=== PATIENT | female | born 1945 | race Caucasian/White ===

== ENCOUNTER 2024-06-01 09:31 | Outpatient (CLI) | payer MEDICARE, BC, SELFPAY | END 2024-06-01 09:32 | disposition home or self-care (01) | LOC: CT 09:33 | PROVIDERS: PCP Nurse Practitioner Family; Visit Provider Orthopaedic Surgery Sports Medicine | DX: M19.011 Primary osteoarthritis, right shoulder (principal); Z96.611 Presence of right artificial shoulder joint | CPT/HCPCS: 73200 ==

== ENCOUNTER 2024-06-21 13:40 | Outpatient (RCR) | payer MEDICARE, BC, SELFPAY ==
--- NOTE | 2024-06-21 15:02 | OT.OPOE ---
OT Outpatient Ortho Eval OT Outpatient Ortho Eval* Start: 06/21/24 13:42 Freq: Status: Active Protocol: Document 06/21/24 14:45 CSS (Rec: 06/21/24 15:02 CSS [id number]) E-signed By Tamica Sheppard OTR/L OT OP Ortho Eval Details Complexity Complexity Low Insurance Information Insurance Information Medicare B Outpatient History/Precautions Current Condition/Medical Diagnosis Referring Provider Dr. 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 Reports dtr plans to stay with her for approx 6 days to provide care. She plans on doing OP in [place] through [facility]. Pain Assessment Pain Pain Yes Pain Comments 4/10 R shoulder Range of Motion and Strength Shoulder Range of Motion and Strength Shoulder Range of Motion and Strength limited R shoulder AROM; less than 90 degrees of flexion Elbow/Forearm Range of Motion and Strength Elbow/Forearm Range of Motion and R elbow and forearm: WNL Strength OT Objective Data Sensation Sensation Assessment Summary Comments denies N/T OT Problems Problems Problems Decreased Strength,Decreased Range of Motion,Pain Other Problems Writing,Opening Containers, Dressing,Fasteners Patient Potential Excellent Assessment Assessment Assessment Pt is a 79 year old female who is referred to OP OT for pre- op shoulder education. Pt plans to have R shoulder arthoplasty by Dr. Dinero on 06/30/24. She will have daughter to provide care for her for 6 days post-op. Her son who lives with her is able to assist with IADLs, however he works outside of home so not able to provide around the clock supervision. In today's evaluation, pt educated on precautions, ADL retraining with non dominant hand, AE, fall prevention and post-op exercises. Pt would benefit from ongoing skilled OT during hospital after surgery and then OP PT for ongoing exercises; pt to be seen at [facility] in [place] for OP PT. Occupational Therapy Treatment Plan - OP Potential Rehabilitation Potential Excellent Set Goals Goals Set with Patient Yes Goals Goals 1. Patient will be able to properly don/doff her shoulder sling w/ mod independence while complying to shoulder precautions. - goal met 2. Patient will demonstrate how to accurately perform post-op HEP with use of handout w/ modified independence. - goal met 3. Patient will be able to verbalize post op shoulder precautions. - goal met. Treatment Plan Treatment Plan Evaluation,Therapeutic Exercise,Self Care/Home Management Expected Frequency 1x Week Expected Duration 1 day Home Program Home Program Home Program Initiated Home Program Specifics Supported Elbow (AROM) 1 set x10 repetitions; 3x/day Wrist Circles (AROM) 1 set x10 repetitions; 3x/day Seated Straight Fist (AROM) 1 set x10 repetitions; 3x/day Finger Spreading 1 set x10 repetitions; 3x/day Certification Certification Statement I Certify That: Therapy Services Provided, Therapy Plan Established, Therapy Plan Reviewed Certification Information Clinic ID # [id number] Initial Certification Date 06/21/24 Recertification Due Date 06/22/24 Provider Signature Required Yes Provider Signature Shows Agreement With POC & Medical Necessity Physician NPI Number Write NPI# Here Physician Comment/Change Comment or Changes Physician Signature & Date Requested Please Sign/Date Here
== END 2024-10-19 23:59 | disposition home or self-care (01) ==
PROVIDERS: PCP Nurse Practitioner Family; Visit Provider Orthopaedic Surgery Sports Medicine
DX: M19.011 Primary osteoarthritis, right shoulder (principal); Z96.611 Presence of right artificial shoulder joint; Z51.89 Encounter for other specified aftercare
CPT/HCPCS: 97110; 97165; 97535; J2795; X5282

== ENCOUNTER 2024-06-30 06:04 | Day surgery (SDC) | payer MEDICARE, BC, SELFPAY ==
[2024-06-30] VITALS (25 sets, daily range): BP systolic 89–157; BP diastolic 53–101; PULSE 61–79; RESP 16–20; TEMP 36.1–36.6; O2SAT 91–98; BMI 31.6
--- OUTSIDE RECORDS SUMMARY | 2024-06-30 06:09 | XMS_ITS | Clinical Summary ---
Author Organization [facility] Address [place], [place] [address] Care Team Providers Care Senior Sas Developer Name Role Phone Malika Loja NP Primary Care Provider [phone] Allergies No known active allergies Medications FISH OIL 1,000 MG CAP 2 Once daily 0 04/10/20 07 Active medication order composer Calcium plus D supplement 300 0 05/13/20 22 Active iron,carbonyl- vitamin C (Vitron-C) 65 mg iron- 125 mg Delayed-Releas e tablet Take 1 Tablet by mouth once daily. 07/15/19 24 Active amLODIPine-orlando azepril, 5-20 mg, (LOTREL) 5-20 mg capsuleIndicat ions:Hypertens ion, unspecified type Take 1 Capsule by mouth once daily. 90 Capsule 3 07/15/19 24 Active omeprazole (PRILOSEC) 40 mg Delayed-Releas e capsuleIndicat ions:Gastritis , presence of bleeding unspecified, unspecified chronicity, unspecified gastritis type Take 1 Capsule (40 mg) by mouth once daily. 90 Capsule 3 07/15/19 24 Active ciclopirox solution (LOPROX) 8 % solutionIndica tions:Fungal nail infection Apply topically to affected area(s) at bedtime. Apply solution once daily to affected nails with applicator brush, preferably at bedtime or 8 hours before washing; remove with alcohol every 7 days 6.6 mL 11 07/15/19 24 Active triamcinolone (ARISTOCORT; KENALOG) 0.1 % cream APPLY TO ITCHY AREAS ON THE TORSO ONE TO TWO TIMES DAILY FOR UP TO 2 WEEKS PER MONTH, THEN REPEAT NEEDED FOR FLARES 02/06/20 24 Active atenoloL (TENORMIN) 50 mg tabletIndicati ons:HTN (hypertension) Take 1 Tablet (50 mg) by mouth once daily. 90 Tablet 05/04/20 24 Active fluticasone (50 mcg per actuation) nasal solution (FLONASE)Indic ations:Allergi c rhinitis due to pollen, unspecified seasonality Inhale 1-2 Sprays in both nostrils once daily. 48 g 2 06/06/19 25 Active aspirin chewable 81 mg chewable tablet Take 1 tablet by mouth once daily with a meal. 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 GERD (gastroesophageal reflux disease) 8 OSTEOPENIA 08/28/2005 Overview (04/10/2007): DXA scan: lowest T-score -1.7 at femoral neck Unspecified essential hypertension Osteoarthrosis, unspecified whether generalized or localized, unspecified site Encounter for screening colonoscopy Encounters Date Type Department Care Team Description 06/18/2024 Orders Only [address] [address] Malika Loja NP 1 scan: (1-Ord) 06/17/2024 06/17/2024 10:30 AM ASSOCIATE TEAM PHYSICIAN Office Visit [address] [place] [address] Malika Loja NP Pre-Op Exam (06/30/24-RTSHOULDER REPLACEMENT) 06/17/2024 Travel 06/12/2024 Travel 06/03/2024 Refill [facility] [address] [facility] [place] [address] Malika Loja NP Refill Request (Fluticasone (50 Mcg Per Actuation) Nasal) 05/14/2024 Transcribe Orders [facility] [place] [id number] [address] [address] Tao Langley MD 04/26/2024 10:50 AM ASSOCIATE TEAM PHYSICIAN Office Visit [facility] [address] [place] [address] Malika Loja NP Blood Pressure 04/26/2024 Travel 04/23/2024 Telephone [facility] [address] [place] [address] Malika Loja NP Blood Pressure 04/21/2024 Travel 04/20/[address] [place] [address] Malika Loja NP Appointment 04/12/2024 Orders Only [facility] [address] [place] [address] Malika Loja NP <No scans attached> 04/08/2024 10:56 AM ASSOCIATE TEAM PHYSICIAN - 04/08/2024 11:59 PM ASSOCIATE TEAM PHYSICIAN Hospital Encounter [facility] [address] [facility] [place] [address] Malika Loja NP Mass of joint of right shoulder; Axillary mass, right 04/08/2024 10:10 AM ASSOCIATE TEAM PHYSICIAN Office Visit [facility] [address] [facility] [place] [address] Malika Loja NP Follow Up (Breast US) 04/07/2024 Travel from Last 3 Months Immunizations Name Administration Dates Next Due COVID-19 vaccine (Moderna 100mcg/0.5mL) EDUARDO SOLIS 09/22/2021,03/23/2021 DTaP 01/27/2008 Influenza, High-dose Inactivated 03/04/2016,1012/2014 Influenza, IIV3 (Age >=3 years) 03/03/20 14,03/10/2013,03/11/2012,03/20,03/09/2007,04/08/2005 Influenza, IIV4 03/04/2014 Influenza, Inactivated AIIV4 (Age 65+ Years) Preserv Free 03/10/2023,03/04/2022,03/03/2021,02/13 Influenza, Inactivated IIV3 (Age 65+ Years) Preserv Free 02/23/2024,02/05/2019,02/24/2018,01/20 Pneumococcal Poly,23-Valent (Pneumovax) 03/11/2012 Pneumococcal conj 13-Valent (Prevnar 13) 03/04/2014 RSV, Bivalent Vaccine Recons tituted (Abrysvo 120MCG/0.5mL) 02/05/2023 Td (Age >=7 Years) 03/01/2024 Tdap 12/28/2013 Zoster (Shingrix-RZV, recombinant) 09/25/2020, Zoster (Zostavax-ZVL, live) 01/27/2008 Family History Medical History Relation Name Comments Heart Disease Father Hypertension Mother Cancer No Family History Cancer-breast No Family History Cancer-colon No Family History Cancer-ovarian No Family History Cancer-prostate No Family History Relation Name Status Comments Father (Age 70) Mother Social History Tobacco Use Types Packs/Day Years Used Date Smoking Tobacco: Never Smokeless Tobacco: Never Tobacco Cessation:Counseling Given: Yes Alcohol Use Standard Drinks/Week Comments Yes 0.8 (1 standard drink = 0.6 oz p ure alcohol) rarely PHQ-2 Answer Date Recorded PHQ-2 TOTAL SCORE 0 07/15/2023 Social Connections Answer Date Recorded Do you often feel lonely or isolated from those around you? 0 02/25/2024 Alcohol Use Answer Date Recorded How often do you have a drink containing alcohol ? 3 05/11/2021 How many drinks containing a lcohol do you have on a typical day when you are drinking? 1 05/11/2021 How often do you have five or more drinks on one occasion? 1 05/11/2021 Financial Resource Strain Answer Date R ecorded Difficulty of Paying Living Expenses 3 02/25/2024 Difficulty of Paying Living Expenses Not on file 02/25/2024 Food Insecurity Answer Date Recorded Do you worry your food will run out before you are able to buy more? 1 02/25/2024 Transportation Needs Answer Date Record ed Does lack of transportation keep you from medica l appointments? 1 02/25/2024 Does lack of transportation keep you from work, meetings or getting things that you need? 1 02/25/2024 Housing Stability Answer Date Recorded What is your housing situation today? 1 02/25/2024 Utilities Answer Date Recorded Do you have trouble paying f or utilities (for example, heat, electricity, water, phone)? 1 02/25/2024 Comments No Sex and Gender Information Value Date Recorded Sex Assigned at Not on file Legal Sex Female 6:05 AM ASSOCIATE TEAM PHYSICIAN Gender Identity Not on file Sexual Orientation Not on file Occupation Industry Job Start Date Job End Date Not on file Not on file Not on file Not on file Obstetrics History Para Term AB IAB SAB Ectopic Multiple Livin g Live Births 3 3 3 Date Outcome GA Total Labor Labor/2nd/3rd Weight Sex Type Anes PTL Kimmy A1 A5 Name Clin Para Para Para Last Filed Vital Signs Vital Sign Reading Time Taken Comments Blood Pressure 138/94 06/17/2024 10:43 AM ASSOCIATE TEAM PHYSICIAN Pulse 64 06/17/2024 10:43 AM ASSOCIATE TEAM PHYSICIAN Temperature 36.5 C (97.7 F) 10/21/2023 12:05 PM CDT Respiratory Rate 16 10/21/2023 12:05 PM CDT Oxygen Saturation 96% 10/21/2023 12:05 PM CDT Inhaled Oxygen Concentration - - Weight 68.7 kg (151 lb 8 oz) 06/17/2024 10:43 AM ASSOCIATE TEAM PHYSICIAN Height 146.1 cm (4' 9.5) 07/15/2023 8:28 AM ASSOCIATE TEAM PHYSICIAN Body Mass Index 32.22 07/15/2023 8:28 AM ASSOCIATE TEAM PHYSICIAN Plan of Treatment Upcoming Encounters Date Type Department Care Team (Late st Contact Info) Description 07/14/2024 10:15 AM ASSOCIATE TEAM PHYSICIAN Appointment [facility] [address] [address] Ines Ruiz, PT [address] [place] [address] 07/21/2024 10:15 AM ASSOCIATE TEAM PHYSICIAN Appointment [address] [address] MaryInes brandt, PT [address] [place] [address] 07/28/2024 10:15 AM ASSOCIATE TEAM PHYSICIAN Appointment [address] [address] Ines Ruiz, PT [address] [place] [address] Health Maintenance Due Date Last Done Comments BMI (ht and wt on same day) for age 18+ 07/15/2024 07/15/2023, 07/23/2022, 05/13/2022, Additional history exists Depression screening for age 12+ 07/15/2024 07/15/2023, 05/14/2022, 05/13/2022, Additional history exists Medicare Wellness for age 65+ 07/15/2024, 05/13/2022, 05/11/2021, Additional history exists Tetanus booster 03/01/2034 03/01/2024, 0809/2013, 01/27/2008 DEXA/DXA scan for age 65+ Completed 03/23/2012, 08/2007 Tdap Completed 12/28/2013 Pneumococcal series for age 50+ Completed 4, 03/11/2012 Zoster (shingles) series for age 50+ Completed 09/25/2020, 05/01/2020, 01/27/2008 RSV vaccine for adults or Completed 02/05/2023 COVID-19 vaccine series Completed 02/23/20 24, 03/10/2023, 02/25/2022, Additional history exists Influenza for age 65+ Completed 02/23/2024 , 03/10/2023, 03/04/2022, Additional history exists Procedures Procedure Name Priority Date/Time Associated Diagnosis Comments CBC WITH AUTO DIFFERENTIAL STAT 06/17/2024 11:25 AM ASSOCIATE TEAM PHYSICIAN Pre-op exam Nontraumatic complete tear of right rotator cuff BASIC METABOLIC PANEL STAT 06/17/2024 11:25 AM ASSOCIATE TEAM PHYSICIAN Pre-op exam Nontraumatic complete tear of right rotator cuff CBC WITH AUTO DIFFERENTIAL STAT 06/17/2024 11:25 AM ASSOCIATE TEAM PHYSICIAN Pre-op exam Nontraumatic complete tear of right rotator cuff EKG 12 LEAD Routine 06/17/2024 12:00 AM ASSOCIATE TEAM PHYSICIAN Pre-op exam Nontraumatic complete tear of right rotator cuff MR SHOULDER RIGHT WO AVANI 04/08/2024 12:38 PM ASSOCIATE TEAM PHYSICIAN Mass of joint of right shoulder Axillary mass, right XR DXA BONE DENSITY 2 SITES AXIAL Routine 03/23/2012 9:54 AM CDT OSTEOPENIA from Last 3 Months or Most Recently Relevant to Health Maintenance Results * (ABNORMAL) CBC WITH AUTO DIFFERENTIAL (06/17/2024 11:25 AM ASSOCIATE TEAM PHYSICIAN) WHITE BLOOD COUNT 6.9 4.5 - 11.0 thou/cu mm 06/17/2024 11:55 AM [facility] RED BLOOD COUNT 4.73 4.00 - 5.20 mil/cu mm 06/17/2024 11:55 AM [facility] HEMOGLOBIN 13.4 12.0 - 16.0 g/dL 06/17/2024 11:55 AM [facility] HEMATOCRIT 41.3 33.0 - 51.0 % 06/17/2024 11:55 AM [facility] MCV 87 80 - 100 fL 06/17/2024 11:55 AM [facility] MCH 28.3 26.0 - 34.0 pg 06/17/2024 11:55 AM [facility] MCHC 32.4 32.0 - 36.0 g/dL 06/17/2024 11:55 AM [facility] RDW 14.7 11.5 - 15.5 % 06/17/2024 11:55 AM [facility] PLATELET COUNT 355 140 - 440 thou/cu mm 06/17/2024 11:55 AM [facility] MPV 9.2 6.5 - 11.0 fL 06/17/2024 11:55 AM [facility] % NEUT 67.1 % 06/17/2024 11:55 AM [facility] % LYMPH 17.8 % 06/17/2024 11:55 AM [facility] % MONO 13.1 % 06/17/2024 11:55 AM [facility] % EOS 1.7 % 06/17/2024 11:55 AM [facility] % BASO 0.3 % 06/17/2024 11:55 AM [facility] ABSOLUTE NEUTROPHILS 4.6 1.7 - 7.0 thou/cu mm 06/17/2024 11:55 AM [facility] ABSOLUTE LYMPHOCYTES 1.2 0.9 - 2.9 thou/cu mm 06/17/2024 11:55 AM [facility] ABSOLUTE MONOCYTES 0.9(H) <0.9 thou/cu mm 06/17/2024 11:55 AM [facility] ABSOLUTE EOSINOPHILS 0.1 <0.5 thou/cu mm 06/17/2024 11:55 AM [facility] ABSOLUTE BASOPHILS 0.0 <0.3 thou/cu mm 06/17/2024 11:55 AM [facility] Blood BLOOD SPECIMEN / Unknown [facility] / Unknown 06/17/2024 11:25 AM [facility] 06/17/2024 11:25 AM [facility] Malika Loja NP HEMATOLOGY Final Result [facility] [address] [place] [address] * (ABNORMAL) BASIC METABOLIC PANEL (06/17/2024 11:25 AM [facility]) SODIUM 130(L) 136 - 145 mmol/L 06/17/2024 12:08 PM [facility] POTASSIUM 4.2 3.5 - 5.1 mmol/L 06/17/2024 12:08 PM [facility] CHLORIDE 92(L) 98 - 107 mmol/L 06/17/2024 12:08 PM [facility] CO2,TOTAL 27 22 - 29 mmol/L 06/17/2024 12:08 PM [facility] ANION GAP 11 5 - 18 06/17/2024 12:08 PM [facility] GLUCOSE 103(H) 70 - 99 mg/dL 06/17/2024 12:08 PM [facility] CALCIUM 9.9 8.8 - 10.4 mg/dL 06/17/2024 12:08 PM [facility] Comment: Reference ranges for this test were updated on 03/30/2024 to reflect our healthy population more accurately. Reference range changes are not retroactively applied to results, but previous results using the same methodology can be interpreted in the context of the new reference range. BUN 6(L) 8 - 23 mg/dL 06/17/2024 12:08 PM [facility] CREATININE 0.65 0.50 - 0.90 mg/dL 06/17/2024 12:08 PM [facility] BUN/CREAT RATIO 9(L) 10 - 20 12:08 PM [facility] eGFR 89(L) >90 mL/min/1. 73m2 06/17/2024 12:08 PM [facility] Comment:As of 2021, eG FR is calculated by the CKD-EPI creatinine equation without race adjustment. eGFR can be influenced by muscle mass, exercise, and diet. The reported eGFR is an estimation only and is only applicable if the renal function is stable. Blood BLOOD SPECIMEN / Unknown [facility] / Unknown 06/17/2024 11:25 AM ASSOCIATE TEAM PHYSICIAN 06/17/2024 11:25 AM [facility] us Malika Arendt INDUSTRIAL TRAINING SPECIALIST CHEMISTRY Final Result [facility] [address] [place] [address] * EKG 12 LEAD (06/17/2024 12:00 AM ASSOCIATE TEAM PHYSICIAN) Malika Loja INDUSTRIAL TRAINING SPECIALIST EKG ORD Final Result * MR SHOULDER RIGHT WO (04/08/2024 12:38 PM ASSOCIATE TEAM PHYSICIAN) Anatomical Region Laterality Modality SHOULDER R Magnetic Resonan ce 04/08/2024 1:02 PM ASSOCIATE TEAM PHYSICIAN Impressions 04/08/2024 1:02 PM ASSOCIATE TEAM PHYSICIAN 1. Massive rotator cuff tear with muscular atrophy. Full-thickness tear of the long head of the biceps tendon. Superior and anterior subluxation of the humeral head. 2. Advanced glenohumeral osteoarthritis with osseous remodeling of the glenoid and humeral head. 3. Prominent glenohumeral joint effusion and distention of the subacromial subdeltoid bursa with fluid and synovitis. 4. Tear and degeneration of the labrum. 5. Remodeling and narrowing of the coracoacromial arch secondary to the humeral subluxation. Dictated by Chad Martinez MD @ 04/08/2024 1:02:44 PM (Electronically Signed) Narrative 04/08/2024 1:02 PM ASSOCIATE TEAM PHYSICIAN For Patients: As a result of the Century Cures Act, medical imaging exams and procedure reports are released immediately into your electronic medical record. You may view this report before your referring provider. If you have questions, please contact your health care provider. EXAM: MRI OF THE RIGHT SHOULDER WITHOUT CONTRAST CLINICAL INDICATION: Follow-up shoulder dysfunction axillary fullness. COMPARISON PLAIN FILMS: None available at time of interpretation. COMPARISON CROSS-SECTIONAL IMAGING STUDIES: 03/08/2024 ultrasound. TECHNICAL: Axial, sagittal oblique and coronal oblique T1, PD, PD FS and T2-weighted images. Shoulder surface coil. FINDINGS: ROTATOR CUFF TENDONS AND MUSCLES AND DELTOID: Supraspinatus: Full-thickness tear with medial retraction to the superior glenoid. Prominent atrophy. No muscle edema. Infraspinatus: Full-thickness tear of the majority of the infraspinatus tendon with a few posterior fibers which remain intact. Prominent atrophy. No muscle edema. Subscapularis: Full-thickness tear of the mid to superior subscapularis tendon with medial retraction and prominent atrophy of the superior musculature. Teres Minor: No tendinosis, tendon tearing, muscle atrophy or muscle edema. Deltoid: No muscle atrophy or edema. BURSA: Subacromial-subdeltoid: Prominent distention of the subacromial subdeltoid bursa with synovitis. BICEPS TENDON, LONG HEAD: Full-thickness tear and proximal retraction. CORACOACROMIAL ARCH: Acromial Morphology: Type 1 acromial morphology. Superior and anterior subluxation of the humeral head with osseous remodeling and fragmentation of the acromion, distal clavicle and coracoid. Acromiohumeral Interval: Narrowed interval secondary to superior subluxation of the humeral head. Coracohumeral Interval: Narrowed interval secondary to humeral head subluxation. ACROMIOCLAVICULAR JOINT REGION: AC Joint: Remodeling and widening of the acromioclavicular joint. No inferior marginal osteophytes. Ligaments: The coracoclavicular ligaments are intact. GLENOHUMERAL JOINT: Joint space: Prominent glenohumeral joint effusion with mild synovitis contiguous with the subacromial subdeltoid bursa. Humeral Head Articular Cartilage: Full-thickness chondromalacia with mild osseous remodeling superiorly. Glenoid Articular Cartilage: Prominent osseous remodeling of the superior and anterior glenoid. Labrum: Diffuse tear and degeneration. Alignment: Superior and anterior subluxation of the humeral head. Capsule: No capsular edema or abnormal capsular thickening. OSSEOUS STRUCTURES: No fracture, marrow edema or marrow replacement process. OTHER FINDINGS: The glenohumeral joint effusion and prominent amount of fluid in the subacromial subdeltoid bursa account for the axillary fullness. Procedure Note Chad Martinez MD - 04/08/2024 For Patients: As a result of the 21st Century Cures Act, medical imagingexams and procedure reports are released immediately into your electronicmedical record. You may view this report before your referring provider.If you have questions, please contact your health care provider. EXAM: MRI OF THE RIGHT SHOULDER WITHOUT CONTRAST CLINICAL INDICATION: Follow-up shoulder dysfunction axillary fullness. COMPARISON PLAIN FILMS: None available at time of interpretation. COMPARISON CROSS-SECTIONAL IMAGING STUDIES: 03/08/2024 ultrasound. TECHNICAL: Axial, sagittal oblique and coronal oblique T1, PD, PD FS and T2-weightedimages. Shoulder surface coil. FINDINGS: ROTATOR CUFF TENDONS AND MUSCLES AND DELTOID: Supraspinatus: Full-thickness tear with medial retraction to the superiorglenoid. Prominent atrophy. No muscle edema. Infraspinatus: Full-thickness tear of the majority of the infraspinatustendon with a few posterior fibers which remain intact. Prominent atrophy.No muscle edema. Subscapularis: Full-thickness tear of the mid to superior subscapularistendon with medial retraction and prominent atrophy of the superiormusculature. Teres Minor: No tendinosis, tendon tearing, muscle atrophy or muscleedema. Deltoid: No muscle atrophy or edema. BURSA: Subacromial-subdeltoid: Prominent distention of the subacromial subdeltoidbursa with synovitis. BICEPS TENDON, LONG HEAD: Full-thickness tear and proximal retraction. CORACOACROMIAL ARCH: Acromial Morphology: Type 1 acromial morphology. Superior and anteriorsubluxation of the humeral head with osseous remodeling and fragmentationof the acromion, distal clavicle and coracoid. Acromiohumeral Interval: Narrowed interval secondary to superiorsubluxation of the humeral head. Coracohumeral Interval: Narrowed interval secondary to humeral headsubluxation. ACROMIOCLAVICULAR JOINT REGION: AC Joint: Remodeling and widening of the acromioclavicular joint. Noinferior marginal osteophytes. Ligaments: The coracoclavicular ligaments are intact. GLENOHUMERAL JOINT: Joint space: Prominent glenohumeral joint effusion with mild synovitiscontiguous with the subacromial subdeltoid bursa. Humeral Head Articular Cartilage: Full-thickness chondromalacia with mildosseous remodeling superiorly. Glenoid Articular Cartilage: Prominent osseous remodeling of the superiorand anterior glenoid. Labrum: Diffuse tear and degeneration. Alignment: Superior and anterior subluxation of the humeral head. Capsule: No capsular edema or abnormal capsular thickening. OSSEOUS STRUCTURES: No fracture, marrow edema or marrow replacement process. OTHER FINDINGS: The glenohumeral joint effusion and prominent amount of fluid in thesubacromial subdeltoid bursa account for the axillary fullness. IMPRESSION: 1. Massive rotator cuff tear with muscular atrophy. Full-thickness tear ofthe long head of the biceps tendon. Superior and anterior subluxation ofthe humeral head. 2. Advanced glenohumeral osteoarthritis with osseous remodeling of theglenoid and humeral head. 3. Prominent glenohumeral joint effusion and distention of the subacromialsubdeltoid bursa with fluid and synovitis. 4. Tear and degeneration of the labrum. 5. Remodeling and narrowing of the coracoacromial arch secondary to thehumeral subluxation. Dictated by Chad Martinez MD @ 04/08/2024 1:02:44 PM (Electronically Signed) Malika Loja NP MR Final Result * (ABNORMAL) XR DEXA BONE DENSITY 2 SITES (03/23/2012 9:54 AM CDT) Anatomical Region Laterality Modality Spine, HIPS, HIPL, HIPR Bone Den sitometry Narrative 03/30/2012 10:16 AM ASSOCIATE TEAM PHYSICIAN Please see scanned document for results of this study. Procedure Note Cami Caro MD - 03/30/2012 Please see scanned document for results of this study. Malika Loja NP DEXA Final Result from Last 3 Months or Most Recently Relevant to Health Maintenance Insurance MEDICARE PART B HB ONLY MEDICARE PART A HB ONLY [place] BLUE MR PB ONLY MEDICARE PART A HB ONLY MEDICARE PART B HB ONLY MR [place] Advance Directives * Full Code (Latest Code Status on File) Date Activated Date Inactivated Comments 04/06/2019 9:55 AM 04/06/2019 4:11 PM Question Answer Comments Code Status Discussion: Discussed * Full Code Date Activated Date Inactivated Comments 04/26/2014 11:38 AM 04/26/2014 2:35 PM * Full Code Date Activated Date Inactivated Comments 04/25/2014 6:22 PM 04/26/2014 11:38 AM * Full Code Date Activated Date Inactivated Comments 04/18/2014 6:43 PM 04/25/2014 6:22 PM Care Teams Senior Sas Developer Relationship Specialty Start Date End Date Malika Loja NP [address] [place] [id number] PCP - General Family Practice 11/30/13
[2024-06-30] MEDS: OXYCODONE (CR) 10 MG TAB.ER.12H PO (06:30)
[2024-06-30] MEDS: SODIUM CHLORIDE 0.9 % (FLUSH) 10 ML SYRINGE IVF (06:30)
[2024-06-30] MEDS: LACTATED RINGERS 1000 ML 1,000 ML 100 ML IV ×2 (06:30→09:37)
[2024-06-30] MEDS: ACETAMINOPHEN 500 MG TABLET 1000 MG PO (06:31)
[2024-06-30] MEDS: MIDAZOLAM HCL 1 MG/ML inj IVP (07:01)
[2024-06-30] MEDS: fentaNYL 100 MCG/2 ML inj IVP (07:01)
--- NOTE | 2024-06-30 07:04 | W.PM.H&PU ---
History & Physical Update History & Physical Update H&P Reviewed and patient assessed: No changes noted
--- NOTE | 2024-06-30 07:08 | SUR.PREOP ---
TIME?OUT:?01 PT/RN/MDA?VERIFICATION?OF?SURGICAL?SITE,?PROCEDURE,?AND?CONSENT OBTAINED?PRIOR?TO?INVASIVE?PROCEDURE.
--- NOTE | 2024-06-30 07:29 | W.ANESCHARGE ---
Anesthesia Charges Start Date/Time Anesthesia Start Date: 06/30/24 Anesthesia Start Time: 07:13 Stop Date/Time Anesthesia Stop Date: 06/30/24 Anesthesia Stop Time: 09:36 Summary Extremes of Age - Over 70 or under 1: MDA Coding CPT Codes CPT Codes: ANESTH SHOULDER REPLACEMENT - 60223 ([id number]) P2 - PATIENT W/MILD SYST DISEASE, QK - MAINTENANCE ENGINEER 2-4 CNCRNT ANES PROC, QX - HEALTHCARE ANALYST SVC W/ MD MED DIRECTION Additional Codes: Summary - Extremes of Age - Over 70 or under 1: MDA ([id number])
--- NOTE | 2024-06-30 07:29 | P.ANES_ITS ---
Anesthesia Charges Start Date/Time Anesthesia Start Date: 06/30/24 Anesthesia Start Time: 07:13 Stop Date/Time Anesthesia Stop Date: 06/30/24 Anesthesia Stop Time: 09:36 Summary Extremes of Age - Over 70 or under 1: MDA Coding CPT Codes CPT Codes: ANESTH SHOULDER REPLACEMENT - 53822 ([id number]) P2 - PATIENT W/MILD SYST DISEASE, QK - DRILL PRESS SET UP OPERATOR 2-4 CNCRNT ANES PROC, QX - SENIOR CLINICAL CONSULTANT SVC W/ MD MED DIRECTION Additional Codes: Summary - Extremes of Age - Over 70 or under 1: MDA ([id number])
[2024-06-30] MEDS: CEFAZOLIN 2 GM in 0.9 % SODIUM CHLORIDE Mini-bag 100 ML IVPB (07:35)
[2024-06-30] MEDS: TRANEXAMIC ACID 100 MG/ML INJ 1000 MG IV (07:35)
--- NOTE | 2024-06-30 09:15 | P.NB_ITS ---
Nerve Block Nerve Block Time Seen by Provider: 07:05 Date Seen: 06/30/24 Type of block requested by surgeon for post-operative analgesia: supraclavicular Side: right Time out performed: Yes Verification of patient name: Yes Verification of date of : Yes Site marking: site marked Name of person performing procedure: Kvng Continuous monitoring Was continuous monitoring of O2 sat, B/P, phototypesetting equipment monitor, recorded every 15 minutes?: Yes Procedure Checklist: sterile prep, needles and gloves Ultrasound guided. Images saved: Yes Medications given in 5ml increments after negative aspiration: Ropivicaine %: 0.5 mL: 20 Needle gauge: 22 Precedex (mcg): 25 Patient tolerated procedure well: Yes Block Charges Block Charge (with Pro Fee): Brachial Plexus Use of Ultrasound Machine for Block: Yes- US Guidance/pain block
--- NOTE | 2024-06-30 09:15 | CRLHL7_ITS ---
For Patients: As a result of the Century Cures Act, medical imaging exams and procedure reports are released immediately into your electronic medical record. You may view this report before your referring provider. If you have questions, please contact your health care provider. INDICATION: Postop. TECHNIQUE: Two views of the right shoulder. FINDINGS: New reverse right TSA. Components appear well seated. Resection of the distal clavicle. Dictated by Alberto Ivan MD @ 06/30/2024 1:24:51 PM (Electronically Signed)
--- NOTE | 2024-06-30 09:23 | P.ORPRC_ITS ---
Procedure Note Date of procedure: 06/30/24 Procedure: PREOPERATIVE DIAGNOSIS: 1. Right shoulder cuff tear arthropathy, severe POSTOPERATIVE DIAGNOSIS: 1. Right shoulder cuff tear arthropathy, severe PROCEDURE: 1. Right reverse shoulder arthroplasty SURGEON: Tao Langley MD. SOCIAL GROUP WORKER: [facility] - Of note, a skilled medical technician assistant was critical for this case to aid in patient positioning, tissue retraction, limb manipulation/positioning, retraction for glenoid exposure, which was challenging, awareness and protection of critical structures, and closure. ANESTHESIA: General plus supraclavicular block EBL: 100 ml IMPLANTS: DJ0 surgical Altivate humeral stem size 10 small shell, short with P2 porous coating vitamin E semi constrained poly small socket insert RSP glenoid augmented wedged base plate P2 porous coating with 30 mm central screw for modular component and Winston taper piece engagement in the base plate. 3 perimeter locking screws 32- 4 glenosphere with retaining screw COMPLICATIONS: None evident INDICATIONS: The patient is a pleasant 79-year-old female who has experienced severe right shoulder pain and difficulty with use. Workup included imaging which revealed severe osteoarthrosis along with clear cuff tear arthropathy due to superior humeral head migration and severe medialization of the humeral head. Physical exam was consistent with associated pain. Given the deformity, the dysfunction, and the pain, and failure of nonoperative management, recommendation was made for surgery. DESCRIPTION OF PROCEDURE: Following a thorough discussion of risks, benefits, and alternatives, consent was obtained and the left shoulder was marked. The patient was brought to the operating room and placed supine on the operating table. Induction of anesthesia was undertaken. 1 g IV Ancef and 1 g tranexamic acid was administered within 1 hr of incision preoperatively. Appropriate time-out was performed identifying proper patient, site, and procedure. The operative extremity was prepped and draped in the appropriate sterile fashion using ChloraPrep after the patient was positioned in the lazy beach chair position with head in neutral alignment and all bony prominences well padded. A longitudinal incision was made for deltopectoral approach. Deltoid was retracted laterally. Cephalic vein was identified and retracted laterally as well. Vein was spared/protected throughout the case. The clavipectoral fascia was identified and divided longitudinally staying lateral to the conjoined tendon / coracoid. The conjoined tendon was protected with a blunt Hohmann. The long head of biceps tendon was not visualized during the surgery as it likely had previously spontaneously ruptured and retracted distally. The upper 1/4 of the pectoralis major was also released from its insertion. The rotator cuff was inspected and found to have fair-poor integrity with the subscapularis but poor integrity with a supraspinatus], and a decision for a reverse shoulder arthroplasty was confirmed. A subscapularis cuff of tissue /anterior capsular tissue was left via tenotomy for later repair with the remaining subscapularis released in a subperiosteal fashion with the Bovie. This tenotomy was tagged for later repair. The 3 sisters were cauterized. The upper subscapularis was released from the capsule with a curved Victoria scissors towards the glenoid. The inferior subscapularis was divided from the capsular tissue on its caudal surface with particular caution for the axillary nerve. This was palpated anterior to the subscapularis both prior to and near the finish of the case. Inferior humeral head osteophytes were excised with caution taken throughout the case with regards to the axillary nerve. The humerus was dislocated, and humeral head cut completed. Then a protector plate was applied. We turned our attention to the glenoid. The humerus was retracted posteriorly. The subscap was protected anteriorly and the labrum/long head biceps origin was excised circumferentially. The capsule was released along the anterior and inferior portions of the glenoid cautiously with a Sena elevator being careful not to penetrate deep. The glenoid had appropriate exposure, and was prepared with the cannulated system with a target of approximately 0-5? of inferior tilt and neutral anteversion. The patient had a significant medialization of the humeral head and superior wear of the glenoid with excessive osteophytosis superiorly and anteriorly on the glenoid with a false tab before the glenoid articulation. Utilizing the match Point 3D printed guide, the guide pin was placed. The 3D printed jig removed and after placing the guide pin, the tap was placed followed by the glenoid reaming for augmented wedge base plate. This required a different room within typical and caution given her 79-year-old bone. The real base plate was opened, and inserted, and excellent compression/purchase was achieved with the central screw. The Winston taper was engaged. Peripheral screws were then drilled, measured, and placed. The glenosphere was then placed consistent with the preoperative plan utilizing the above noted glenosphere. After securing the glenosphere with the locking, torque limited screw, attention was turned back to the humerus. A canal finder was placed followed by various reamers by hand. The real humeral stem was then opened and inserted with excellent metaphyseal fit and stability. Trial poly was placed and the shoulder reduced. Excellent reduction and stability achieved with appropriate tension on the conjoined tendon. At this stage, trial implants were removed, and the real implants inserted and the shoulder reduced. A 3 minute Betadine soak was performed followed by a thorough irrigation with normal saline. Subscapularis was repaired with #1 PDS to the cuff of tissue on the lesser tuberosity. Excellent reapproximation of tissue achieved. Hemostasis was found to be appropriate. The deltopectoral interval was reapproximated with 0 Vicryl, subcutaneous and subcuticular closure was then performed with number 2-0 Vicryl and 4-0 Monocryl, respectively. A skilled medical technician assistant was critical for this case to aid in patient positioning, tissue retraction, limb manipulation/positioning, retraction for glenoid exposure, which was challenging, awareness and protection of critical structures, and closure. PLAN: 1. Sling at all times for the operative upper extremity. 2. AROM of elbow, forearm, wrist, and digits as tolerated. 3. PT/OT consults for education and assistance. 4. Social consult for discharge planning. 5. 23 hr perioperative antibiotics. 6. Early ambulation, and SCDs for DVT prophylaxis. 7. Admit to the hospital for the above 8. Analgesics p.r.n.
--- NOTE | 2024-06-30 09:36 | P.ANES_ITS ---
Anesthesia Charges Start Date/Time Anesthesia Start Date: 06/30/24 Anesthesia Start Time: 07:13 Stop Date/Time Anesthesia Stop Date: 06/30/24 Anesthesia Stop Time: 09:36 Summary Extremes of Age - Over 70 or under 1: TALENT COORDINATOR Coding CPT Codes CPT Codes: ANESTH SHOULDER REPLACEMENT - 22082 ([id number]) P2 - PATIENT W/MILD SYST DISEASE, QX - TALENT COORDINATOR SVC W/ MD MED DIRECTION, QK - CUSTOMER RELATIONS COORDINATOR 2-4 CNCRNT ANES PROC Additional Codes: Summary - Extremes of Age - Over 70 or under 1: TALENT COORDINATOR ([id number])
--- NOTE | 2024-06-30 09:36 | W.ANESCHARGE ---
Anesthesia Charges Start Date/Time Anesthesia Start Date: 06/30/24 Anesthesia Start Time: 07:13 Stop Date/Time Anesthesia Stop Date: 06/30/24 Anesthesia Stop Time: 09:36 Summary Extremes of Age - Over 70 or under 1: WINDOW MAKER Coding CPT Codes CPT Codes: ANESTH SHOULDER REPLACEMENT - 91983 ([id number]) P2 - PATIENT W/MILD SYST DISEASE, QX - WINDOW MAKER SVC W/ MD MED DIRECTION, QK - WIND TURBINE SHEET METAL WORKER 2-4 CNCRNT ANES PROC Additional Codes: Summary - Extremes of Age - Over 70 or under 1: WINDOW MAKER ([id number])
--- NOTE | 2024-06-30 09:48 | SUR.PHASEI ---
xray here for ap/lat right shoulder
--- NOTE | 2024-06-30 14:29 | SUR.PHASEII ---
PAtient ambulatory to restroom with gait belt and stand by assist of OT.
--- NOTE | 2024-06-30 15:09 | SUR.PHASEII ---
Patient provided cool washcloth for her neck. States she feels lightheaded and anxious. Patient she has not eaten since noon yesterday (Friday). Patient had had a few bites of applesauce during her duration of Phase II. Patient finished applesauce and provided toast and grape juice. VSS Denies nausea. Denies pain.
--- NOTE | 2024-06-30 16:01 | SUR.PHASEII ---
1523: Patient ambulatory to bathroom with gait belt and stand by assist of 1. Patient able to void. Patient returned to recliner. Patient verbalizes readiness for discharge. Family member in room okay with plan. Patient denies lightheadedness.
== END 2024-06-30 16:05 | disposition home or self-care (01) ==
LOC: OR 06:07
PROVIDERS: PCP Nurse Practitioner Family; Visit Provider Orthopaedic Surgery Sports Medicine
PROC: 0RRJ0JZ Replacement of Right Shoulder Joint with Synthetic Substitute, Open Approach (ICD-10-PCS; CPT 23472; principal; 2024-06-30 07:15)
DX: M19.011 Primary osteoarthritis, right shoulder (principal); M75.101 Unspecified rotator cuff tear or rupture of right shoulder, not specified as traumatic; G89.18 Other acute postprocedural pain
CPT/HCPCS: 23472; 01638; 64415; 73030; 76942; 97110; 97165; 97535; 99100; A9270; C1713; C1776; J0330; J0690; J1100; J2250; J2371; J2405; J2795; J3010; J3490; J7120